=== PATIENT | female | born 1935 | race Caucasian/White ===

== ENCOUNTER 2016-12-22 16:33 | Emergency (ER) | payer MEDICARE ==
[~2016-12-22 16:33] MED LIST: BENADRYL50 MG PO; CEFTIN500 M1 PO; DAYPRO600 M1 PO; LOMOTIL 0.025 M1 TA1 PO; NKHM; PREDNISONE10 MG PO; ROBAXIN750 MG PO
[2016-12-22 17:16] LABS: BILIRUBIN NEGATIVE (NEGATIVE); BLOOD 3+ (NEGATIVE); CLARITY CLOUDY (CLEAR); COLOR YELLOW (YELLOW); GLUCOSE NEGATIVE (NEGATIVE); KETONE NEGATIVE (NEGATIVE); LEUKO ESTERASE 3+ (NEGATIVE); NITRITE POSITIVE (NEGATIVE); PROTEIN 2+ (NEGATIVE); SPECIFIC GRAVITY 1.025 (1.005-1.030); UROBILINOGEN 0.2 E.U./dl (0.2-1.0)
[2016-12-22 17:25] LABS: BACTERIA 3+; URINE REFLEX COMMENT YES (NO); WBC TNTC wbc/hpf (0-5)
[2016-12-22] MEDS ORDERED: AMINOPHYLLIN200 MG PO (17:31)
== END 2016-12-22 17:33 | disposition home or self-care (01) ==
LOC: ED 16:33
PROVIDERS: Registered Nurse
DX: N30.00 Acute cystitis without hematuria (principal); F17.200 Nicotine dependence, unspecified, uncomplicated; Z88.6 Allergy status to analgesic agent; Z90.49 Acquired absence of other specified parts of digestive tract

== ENCOUNTER 2017-03-29 16:50 | Emergency (ER) | payer MEDICARE ==
[~2017-03-29] VITALS: Wt 49.9 kg
[~2017-03-29 16:50] MED LIST changes: +AMINOPHYLLIN200 MG PO
[2017-03-29] MEDS ORDERED: NAPROSYN500 MG PO (17:25)
== END 2017-03-29 17:23 | disposition home or self-care (01) ==
LOC: ED 16:50
DX: S80.12XA Contusion of left lower leg, initial encounter (principal); R03.0 Elevated blood-pressure reading, without diagnosis of hypertension; F17.200 Nicotine dependence, unspecified, uncomplicated; Z88.6 Allergy status to analgesic agent; Z90.49 Acquired absence of other specified parts of digestive tract; W22.03XA Walked into furniture, initial encounter; Y93.89 Activity, other specified; Y92.9 Unspecified place or not applicable; Y99.9 Unspecified external cause status

== ENCOUNTER 2017-05-11 12:03 | Emergency (ER) | payer MEDICARE ==
[~2017-05-11] VITALS: Ht 170.1 cm; Wt 52.2 kg
[~2017-05-11 12:03] MED LIST changes: +NAPROSYN500 MG PO
== END 2017-05-11 13:40 | disposition home or self-care (01) ==
LOC: ED 12:03
DX: L24.9 Irritant contact dermatitis, unspecified cause (principal); F17.200 Nicotine dependence, unspecified, uncomplicated; Z88.6 Allergy status to analgesic agent

== ENCOUNTER 2020-03-17 10:37 | Inpatient (IN) | payer MEDICARE, MEDICAID ==
[2020-03-17] VITALS (42 sets, daily range): BP systolic 68–116; BP diastolic 36–79
[~2020-03-17] VITALS: Ht 167.6 cm; Wt 62.8 kg
[~2020-03-17 10:37] MED LIST changes: +ASPIRIN CHEWABL81 M1 PO; +ATORVASTATIN CA80 M1 PO; +GABAPENTIN100 M2 PO; +Ipratropium Brom3 ML NEB; +LISINOPRIL10 M1 PO; +Oscal,Oyster S500 MG PO; +PULMICORT RESP0.5 MG NEB; +VITAMIN D32000 UNI1 PO
[2020-03-17 11:09] LABS: BASO # 0.1 10*3/uL (0.0-0.1); BASO % 0.9 % (0.0-1.0); EOS # 0.3 10*3/uL (0.0-0.4); EOS % 3.6 % (1.0-4.0); HEMATOCRIT 34.8 % (37.0-47.0); LYMPH # 1.5 10*3/uL (1.3-4.4); LYMPH % 17.6 % (27.0-41.0); MEAN CELL VOLUME 93.3 fl (81.0-99.0); MEAN CORPUSCULAR HGB 28.7 pg (27.0-31.0); MEAN CORPUSCULAR HGB CONC 30.7 g/dl (33.0-37.0); MEAN PLATELET VOLUME 10.4 fl (9.6-12.3); MONO % 11.9 % (3.0-9.0); NEUT # 5.6 10*3/uL (2.3-7.9); NEUT % 64.7 % (47.0-73.0); PLATELET COUNT AUTOMATED 165 10*3/uL (130-400); RED BLOOD COUNT 3.73 10*6/uL (4.10-5.10); RED CELL DISTRI WIDTH 14.6 % (0-14.5); WHITE BLOOD COUNT 8.6 10*3/uL (4.8-10.8)
[2020-03-17 11:18] LABS: ACT PARTIAL THROMBO TIME 24.6 SECONDS (20.0-32.1); INTERNATIONAL NORM RATIO 1.1 (2.0-3.5)
[2020-03-17 11:23] LABS: ALBUMIN 2.5 gm/dl (3.1-4.5); ALKALINE PHOSPHATASE 86 U/L (45-117); BUN 144 mg/dl (7-24); CHLORIDE 118 mmol/L (98-107); CREATININE 2.75 mg/dL (0.55-1.02); LIPASE 509 U/L (73-393); POTASSIUM 5.9 mmol/L (3.5-5.1); SGOT/AST 23 IU/L (3-35); SGPT/ALT 17 U/L (12-78); SODIUM 140 mmol/L (136-145); TOTAL PROTEIN 6.9 gm/dL (6.4-8.2)
[2020-03-17 11:24] LABS: TROPONIN I < 0.015 ng/ml (<0.045)
--- NOTE | 2020-03-17 11:40 | NUR ---
HEM OCCULT POSITIVE, PERFORMED BY ELVIA PETERSON. RECTAL TEMP WAS 97.9
[2020-03-17 11:44] LABS: BILIRUBIN NEGATIVE (NEGATIVE); BLOOD 3+ (NEGATIVE); CLARITY CLOUDY (CLEAR); COLOR YELLOW (YELLOW); GLUCOSE NEGATIVE (NEGATIVE); KETONE NEGATIVE (NEGATIVE); UROBILINOGEN 0.2 E.U./dl (0.2-1.0)
[2020-03-17 11:45] LABS: LEUKO ESTERASE 3+ (NEGATIVE); NITRITE NEGATIVE (NEGATIVE)
[2020-03-17 11:49] LABS: WBC TNTC wbc/hpf (0-5)
--- NOTE | 2020-03-17 12:00 | NUR ---
A 84, admitted to ICCU, under the services of AYDE Odonnell MD with a diagnosis of REYMUNDO,GI BLEED, HYPERKALEMIA. Chief complaint is HYPOTENSION AND LETHARGY AT HALFWAY.. Patient arrived via stretcher from ER. Monitor applied. Initial assessment completed. Vital signs taken and recorded. AYDE ODONNELL MD notified of admission to the unit. Orders received. See assessment for past medical history, medications and allergies. Patient and/or family oriented to unit. [facility] visitation policy reviewed. CHARLEY HARRIS J
--- NOTE | 2020-03-17 12:28 | NUR ---
PATIENT IS LTC AT [facility]. WILL NEED A COVID TEST TO RETURN WHEN MEDICALLY [place].
[2020-03-17] MEDS ORDERED: NEURONTIN300 MG PO (12:48)
[2020-03-17] MEDS ORDERED: Oscal,Oyster S500 MG PO (12:49)
[2020-03-17] MEDS ORDERED: MIRTAZAPINE15 M2 PO (12:50)
[2020-03-17] MEDS ORDERED: THERA-D100 MCG PO (12:51)
[2020-03-17] MEDS ORDERED: ZOLOFT50 MG PO (12:52)
[2020-03-17] MEDS ORDERED: CRANBERRY250 MG PO (12:54)
[2020-03-17] MEDS ORDERED: MILK OF MA400 MG/51 PO (12:55)
[2020-03-17] MEDS ORDERED: BREO ELLIPTA 11 EACH INH (12:56)
--- NOTE | 2020-03-17 13:31 | NUR ---
DR WHITE NOTIFIED OF NEW CONSULT ORDER AND WILL SEE PT WITH HIS NEXT ROUNDS.
--- NOTE | 2020-03-17 14:46 | NUR ---
I NOTIFIED DR RYAN OF PT'S CONTINUED HYPOTENSION. ORDER TO START LEVOPHED GTT FOR HYPOTENSION.
--- NOTE | 2020-03-17 18:29 | NUR ---
DR RYAN NOTIFIED OF BMP RESULTS. NO ORDERS RECEIVED.
--- NOTE | 2020-03-17 19:02 | NUR ---
CHART CHECK COMPLETE.
--- NOTE | 2020-03-17 19:36 | NUR ---
PT WITHOUT COMPLAINTS. WATCHING TV. CALL LIGHT IN REACH.
--- NOTE | 2020-03-17 19:42 | NUR ---
IV SITE RT ARM (LEVOPHED SITE) REMAINS ASYMPTOMATIC.
--- NOTE | 2020-03-17 20:52 | NUR ---
LEVOPHED TITRATED DOWN TO 2MCG/MIN.
--- NOTE | 2020-03-17 20:54 | NUR ---
LEVOPHED TITRATED TO 3MCG/MIN.
--- NOTE | 2020-03-17 21:21 | NUR ---
LEVOPHED AT 2MCG/MIN. MAP REMAINS >65.
[2020-03-17 21:22] LABS: CREATININE 1.81 mg/dL (0.55-1.02)
[2020-03-17 21:27] LABS: POTASSIUM 4.8 mmol/L (3.5-5.1)
--- NOTE | 2020-03-17 21:38 | NUR ---
DR RYAN NOTIFIED OF BMP FROM 2099. NO NEW ORDERS RECEIVED.
--- NOTE | 2020-03-17 22:17 | NUR ---
JESS CARE DONE FOR INCONTINENCE OF LG AMT OF STRONG SMELLING URINE.
[2020-03-18] VITALS (54 sets, daily range): BP systolic 62–116; BP diastolic 37–79
--- NOTE | 2020-03-18 02:24 | NUR ---
IV SITE CHECKED AT LEAST Q1H AND REMAINS ASYMPTOMATIC. PT SLEEPING.
--- NOTE | 2020-03-18 03:47 | NUR ---
IV SITE REMAINS ASYMPTOMATIC. UPON TRYING TO CHECK PT FOR INCONTINENCE, SHE STATES "NO I'M NOT WET. NO YET." AND PULLS COVERS BACK OVER AND LAYS ON HER SIDE.
--- NOTE | 2020-03-18 04:29 | NUR ---
DR RYAN VISITS.
--- NOTE | 2020-03-18 05:28 | NUR ---
JESS CARE DONE WITH UNDERPADS AND GOWN CHANGED FOR INCONTINENCE OF LG AMT OF URINE.
--- NOTE | 2020-03-18 05:33 | NUR ---
LEVOPHED TITRATED OFF.
[2020-03-18 06:00] LABS: BASO # 0.1 10*3/uL (0.0-0.1); BASO % 1.1 % (0.0-1.0); EOS # 0.4 10*3/uL (0.0-0.4); EOS % 5.3 % (1.0-4.0); HEMATOCRIT 33.3 % (37.0-47.0); LYMPH # 1.4 10*3/uL (1.3-4.4); LYMPH % 18.5 % (27.0-41.0); MEAN CORPUSCULAR HGB 27.9 pg (27.0-31.0); MEAN CORPUSCULAR HGB CONC 30.6 g/dl (33.0-37.0); MEAN PLATELET VOLUME 10.5 fl (9.6-12.3); MONO # 0.9 10*3/uL (0.1-1.0); MONO % 12.6 % (3.0-9.0); NEUT # 4.5 10*3/uL (2.3-7.9); NEUT % 60.7 % (47.0-73.0); PLATELET COUNT AUTOMATED 178 10*3/uL (130-400); RED BLOOD COUNT 3.66 10*6/uL (4.10-5.10); RED CELL DISTRI WIDTH 14.6 % (0-14.5); WHITE BLOOD COUNT 7.4 10*3/uL (4.8-10.8)
--- NOTE | 2020-03-18 06:00 | NUR ---
PT RESTARTED ON LEVOPHED AT 3MCG/MIN.
[2020-03-18 06:27] LABS: ALBUMIN 2.4 gm/dl (3.1-4.5); POTASSIUM 4.8 mmol/L (3.5-5.1)
[2020-03-18 06:32] LABS: CREATININE 1.29 mg/dL (0.55-1.02); TOTAL PROTEIN 6.9 gm/dL (6.4-8.2)
--- NOTE | 2020-03-18 08:17 | NUR ---
Awakened for VS. No c/o . Incontinent of large amt urine, brief changed. Repositions self. Awaiting Dr. Parry for evaulation and recommendation. Remains NPO for possible EGD.
--- NOTE | 2020-03-18 10:22 | NUR ---
Dr. Parry in to evaulate. EGD not recommended at this time. Reg diet ordered.
--- NOTE | 2020-03-18 10:47 | NUR ---
IV left forearm infilltrated. IV removed. dressing to site. Levophed to off.
--- NOTE | 2020-03-18 19:38 | NUR ---
PT REFUSED MIRALAX.
--- NOTE | 2020-03-18 22:19 | NUR ---
JESS CARE DONE FOR INCONTINENCE OF URINE AND SMALL AMT OF HARD ROUND STOOLS. PT POSITIONED FOR COMFORT. CALL LIGHT IN REACH.
[2020-03-19] VITALS: BP 95/53
--- NOTE | 2020-03-19 02:45 | NUR ---
SLEEPING. NO DISTRESS.
[2020-03-19 04:00] VITALS: BP 92/59
--- NOTE | 2020-03-19 04:16 | NUR ---
JESS CARE DONE FOR INCONTINENCE OF LG AMT OF STRONG SMELLING URINE. PT JOKING. ASSESSMENT COMPLETE.
--- NOTE | 2020-03-19 06:49 | NUR ---
DR RYAN VISITS.
[2020-03-19 07:31] LABS: BASO # 0.1 10*3/uL (0.0-0.1); BASO % 0.8 % (0.0-1.0); EOS # 0.4 10*3/uL (0.0-0.4); EOS % 5.2 % (1.0-4.0); HEMATOCRIT 30.4 % (37.0-47.0); LYMPH # 1.5 10*3/uL (1.3-4.4); LYMPH % 19.3 % (27.0-41.0); MEAN CELL VOLUME 90.2 fl (81.0-99.0); MEAN CORPUSCULAR HGB 29.1 pg (27.0-31.0); MEAN CORPUSCULAR HGB CONC 32.2 g/dl (33.0-37.0); MEAN PLATELET VOLUME 10.1 fl (9.6-12.3); MONO # 0.8 10*3/uL (0.1-1.0); MONO % 10.7 % (3.0-9.0); NEUT # 4.8 10*3/uL (2.3-7.9); NEUT % 61.7 % (47.0-73.0); PLATELET COUNT AUTOMATED 172 10*3/uL (130-400); RED BLOOD COUNT 3.37 10*6/uL (4.10-5.10); RED CELL DISTRI WIDTH 14.5 % (0-14.5); WHITE BLOOD COUNT 7.8 10*3/uL (4.8-10.8)
[2020-03-19 07:54] LABS: CHLORIDE 116 mmol/L (98-107); CREATININE 0.88 mg/dL (0.55-1.02); POTASSIUM 4.1 mmol/L (3.5-5.1); SODIUM 142 mmol/L (136-145)
[2020-03-19 08:00] VITALS: BP 106/68
[2020-03-19 08:00] LABS: BUN 26 mg/dl (7-24)
[2020-03-19 12:00] VITALS: BP 115/72
--- NOTE | 2020-03-19 14:16 | NUR ---
PT TRANSFERED TO [facility] VIA BED. PT REPORT GIVEN TO RECEIVING NURSE.
[2020-03-19 16:00] VITALS: BP 125/72
[2020-03-19 20:00] VITALS: BP 133/84
--- NOTE | 2020-03-19 20:49 | NUR ---
ASSUMED CARE OF PATIENT. PATIENT IS AAOX3 RESTING IN BED WITH EASY AND REGULAR RESPERS ON ROOM AIR. ASSESSMENT IS COMPLETE. PATIENT C/O NAUSEA. BED IS LOW, LOCKED, AND CALL LIGHT IS WITHIN REACH. CALL PLACED TO DR. RYAN REQUESTED VENKATA. VENKATA ORDERED AND SHE WOULD ALSO LIKE IV FLUIDS DISCONTINUED.
[2020-03-20] VITALS: BP 117/63
[2020-03-20 06:20] LABS: BASO # 0.1 10*3/uL (0.0-0.1); BASO % 1.2 % (0.0-1.0); EOS # 0.4 10*3/uL (0.0-0.4); EOS % 4.3 % (1.0-4.0); HEMATOCRIT 32.2 % (37.0-47.0); LYMPH # 1.5 10*3/uL (1.3-4.4); LYMPH % 18.7 % (27.0-41.0); MEAN CELL VOLUME 91.2 fl (81.0-99.0); MEAN CORPUSCULAR HGB 28.9 pg (27.0-31.0); MEAN CORPUSCULAR HGB CONC 31.7 g/dl (33.0-37.0); MEAN PLATELET VOLUME 10.2 fl (9.6-12.3); MONO # 0.8 10*3/uL (0.1-1.0); MONO % 10.2 % (3.0-9.0); NEUT # 5.1 10*3/uL (2.3-7.9); NEUT % 63.1 % (47.0-73.0); PLATELET COUNT AUTOMATED 180 10*3/uL (130-400); RED BLOOD COUNT 3.53 10*6/uL (4.10-5.10); RED CELL DISTRI WIDTH 14.2 % (0-14.5); WHITE BLOOD COUNT 8.1 10*3/uL (4.8-10.8)
[2020-03-20 06:30] LABS: CHLORIDE 116 mmol/L (98-107); CREATININE 0.78 mg/dL (0.55-1.02); POTASSIUM 3.8 mmol/L (3.5-5.1); SODIUM 143 mmol/L (136-145)
[2020-03-20 06:33] LABS: BUN 12 mg/dl (7-24)
[2020-03-20 08:00] VITALS: BP 120/62
--- NOTE | 2020-03-20 08:24 | NUR ---
PT RESTING IN BED. NO DISTRESS NOTED. WILL MONITOR
[2020-03-20] MEDS ORDERED: PROTONIX40 MG PO (08:30)
[2020-03-20] MEDS ORDERED: Carafate1 GM PO (08:30)
[2020-03-20] MEDS ORDERED: FERROUS SULFAT325 MG PO (08:30)
--- NOTE | 2020-03-20 09:08 | NUR ---
Patient comes in from [facility]; Covid-19 test ordered 03/20/2020, waiting on results prior to patient returning.
[2020-03-20 12:00] VITALS: BP 130/73
[2020-03-20 16:00] VITALS: BP 114/74
[2020-03-20 20:00] VITALS: BP 143/79
--- NOTE | 2020-03-20 20:00 | NUR ---
24 HR chart check completed.
--- NOTE | 2020-03-20 21:00 | NUR ---
SLEEPING, AWAKENS EASILY. RESPIRATIONS EASY. LUNGS DIMINISHED WITH COARSE EXP WHEEZES. PULSE OX 95% RA. CALL LIGHT WITHIN REACH. NO VOICED COMPLAINTS. BED ALARM MAINTAINED FOR SAFETY
[2020-03-21] VITALS: BP 129/79
--- NOTE | 2020-03-21 | NUR ---
SLEEPING. NO DISTRESS NOTED. RESPIRATIONS EASY. VSS. CALL LIGHT WITHIN REACH. BED ALARM MAINTAINED FOR SAFETY
--- NOTE | 2020-03-21 06:00 | NUR ---
slept throughout night with no distress noted. respirations easy. call light within reach. no voiced complaints this shift. bed alarm maintained for safety
--- NOTE | 2020-03-21 07:37 | NUR ---
Updates and discharge information faxed to Josefina at [facility], notified of discharge. Waiting for [facility] to state patient is ok to return today with Covid 19 test still pending.
[2020-03-21 08:00] VITALS: BP 132/72
--- NOTE | 2020-03-21 08:00 | NUR ---
Patient resting quietly with no c/o discomfort. Respirations easy and regular. Vital signs stable. No overt distress. DARELL DACOSTA
--- NOTE | 2020-03-21 10:43 | NUR ---
Patient is discharged to return to [facility], while Covid test results are pending. They stated since patient is not representing any covid symptoms they will allow her to return today. cashier or checker stock clerk, nursing notified of picker and packer time.
--- NOTE | 2020-03-21 11:04 | NUR ---
Discharge instructions reviewed with patient/family. Patient receptive and verbalizes understanding. Follow-up care arranged. Written instructions given to patient/family. DARELL DACOSTA.
--- NOTE | 2020-03-21 11:15 | NUR ---
[facility] CALLED. NURSE TO NURSE REPORT GIVEN AT THIS TIME.
--- NOTE | 2020-03-21 11:36 | NUR ---
PT WILL RETURN TO [facility] WHEN MEDICALLY STABLE. PT IS SENIOR CARE CARE.
--- NOTE | 2020-03-21 13:20 | NUR ---
PATIENT DISCHARGED AT THIS TIME. TRANSPORTATION PROVIDED BY [facility].
== END 2020-03-21 13:20 | disposition other institution (70) | DRG 314 ==
LOC: ED 10:37 → 4E 11:47 → EDHOLD 11:47 → ICCU 11:59 → 4E 03-19 14:01
PROVIDERS: Nurse Practitioner Family; ADMIT Internal Medicine
DX: I95.9 Hypotension, unspecified (principal); N17.0 Acute kidney failure with tubular necrosis; K92.2 Gastrointestinal hemorrhage, unspecified; E87.2 Acidosis; E46 Unspecified protein-calorie malnutrition; I10 Essential (primary) hypertension; F17.210 Nicotine dependence, cigarettes, uncomplicated; E86.0 Dehydration; L89.151 Pressure ulcer of sacral region, stage 1; E87.5 Hyperkalemia; J43.9 Emphysema, unspecified; E78.5 Hyperlipidemia, unspecified; D50.9 Iron deficiency anemia, unspecified; Z86.73 Personal history of transient ischemic attack (TIA), and cerebral infarction without residual deficits; Z88.6 Allergy status to analgesic agent; Z88.5 Allergy status to narcotic agent; Z91.041 Radiographic dye allergy status; Z90.49 Acquired absence of other specified parts of digestive tract; Z90.710 Acquired absence of both cervix and uterus; Z90.79 Acquired absence of other genital organ(s); Z90.722 Acquired absence of ovaries, bilateral; Z82.3 Family history of stroke; Z91.81 History of falling; Z68.22 Body mass index [BMI] 22.0-22.9, adult; Z03.818 Encounter for observation for suspected exposure to other biological agents ruled out

== ENCOUNTER 2023-03-14 12:54 | Inpatient (IN) | payer OTHER ==
[~2023-03-14] VITALS: Ht 170.2 cm; Wt 53.2 kg
[~2023-03-14 12:54] MED LIST changes: +BREO ELLIPTA 11 EACH INH; +CRANBERRY250 MG PO; +Carafate1 GM PO; +FERROUS SULFAT325 MG PO; +MILK OF MA400 MG/51 PO; +MIRTAZAPINE15 M2 PO; +NEURONTIN300 MG PO; +PROTONIX40 MG PO; +THERA-D100 MCG PO; +ZOLOFT50 MG PO
[2023-03-14 13:01] VITALS: BP 79/47
[2023-03-14 13:22] LABS: HEMATOCRIT 38.7 % (37.0-47.0); MEAN CELL VOLUME 100.8 fl (81.0-99.0); MEAN CORPUSCULAR HGB CONC 30.7 g/dl (33.0-37.0); MEAN PLATELET VOLUME 10.3 fl (9.6-12.3); PLATELET COUNT AUTOMATED 208 10*3/uL (130-400); RED BLOOD COUNT 3.84 10*6/uL (4.10-5.10); RED CELL DISTRI WIDTH 14.9 % (0-14.5); WHITE BLOOD COUNT 16.9 10*3/uL (4.8-10.8)
[2023-03-14 13:24] LABS: MANUAL DIFF REFLEX YES
[2023-03-14 13:33] LABS: ACT PARTIAL THROMBO TIME 24.4 SECONDS (20.0-32.1); INTERNATIONAL NORM RATIO 1.1 (2.0-3.5)
[2023-03-14 13:44] LABS: PLATELET SUFFICIENCY NORMAL (NORMAL); TOTAL CELLS COUNTED 100 #CELLS
[2023-03-14 13:45] LABS: TOTAL PROTEIN 7.3 gm/dL (6.0-8.0)
[2023-03-14] MEDS ORDERED: ARTIFICIAL TEAR1514 OP (14:45)
[2023-03-14] MEDS ORDERED: DICLOFENAC SODI25 MG PO (14:49)
[2023-03-14] MEDS ORDERED: NEURONTIN300 MG PO (14:50)
[2023-03-14] MEDS ORDERED: ONDANSETRON HYDR4 MG PO (14:57)
[2023-03-14] MEDS ORDERED: TYLENOL EXTRA500 MG PO (15:00)
[2023-03-14 15:48] VITALS: BP 85/52
[2023-03-14 16:25] VITALS: BP 93/58
[2023-03-14 17:13] LABS: BILIRUBIN Negative (Negative); BLOOD 2+ (Negative); CLARITY Turbid (Clear); COLOR Yellow (Yellow); GLUCOSE Negative (Negative); KETONE Trace (Negative); LEUKO ESTERASE 3+ (Negative); NITRITE Positive (Negative)
[2023-03-14 17:23] LABS: BACTERIA 4+; WBC 31-40 wbc/hpf (0-5)
[2023-03-14] MEDS ORDERED: LIPITOR20 MG PO (17:36)
[2023-03-14] MEDS ORDERED: VITAMIN D325 MCG PO (17:38)
[2023-03-14 20:00] VITALS: BP 91/48
[2023-03-15] VITALS: BP 108/65
[2023-03-15 04:00] VITALS: BP 128/66
[2023-03-15 06:08] LABS: MEAN CELL VOLUME 100.6 fl (81.0-99.0); MEAN CORPUSCULAR HGB 30.8 pg (27.0-31.0); MEAN CORPUSCULAR HGB CONC 30.6 g/dl (33.0-37.0); MEAN PLATELET VOLUME 11.1 fl (9.6-12.3); PLATELET COUNT AUTOMATED 196 10*3/uL (130-400); RED BLOOD COUNT 3.28 10*6/uL (4.10-5.10)
[2023-03-15 06:13] LABS: MANUAL DIFF REFLEX YES
[2023-03-15 07:10] LABS: TOTAL CELLS COUNTED 100 #CELLS
[2023-03-15 07:13] LABS: PLATELET SUFFICIENCY NORMAL (NORMAL)
[2023-03-15 08:00] VITALS: BP 113/59
[2023-03-15 08:56] LABS: BUN 19 mg/dl (9-23); CHLORIDE 109 mmol/L (98-107); POTASSIUM 4.4 mmol/L (3.4-5.1)
[2023-03-15 12:00] VITALS: BP 114/65
[2023-03-15 16:00] VITALS: BP 111/60
[2023-03-15 17:04] LABS: ABG BASE EXCESS -1.3 mmol/L (-2.0-2.0); ARTERIAL BLOOD GAS PH 7.421 (7.35-7.45); ARTERIAL BLOOD GAS PO2 68.3 (80-90)
[2023-03-15 20:00] VITALS: BP 109/64
[2023-03-16] VITALS (7 sets, daily range): BP systolic 86–155; BP diastolic 41–95
[2023-03-16 04:33] LABS: HEMATOCRIT 32.5 % (37.0-47.0); MEAN CELL VOLUME 97.9 fl (81.0-99.0); MEAN CORPUSCULAR HGB 30.7 pg (27.0-31.0); MEAN CORPUSCULAR HGB CONC 31.4 g/dl (33.0-37.0); MEAN PLATELET VOLUME 10.6 fl (9.6-12.3); PLATELET COUNT AUTOMATED 207 10*3/uL (130-400); RED BLOOD COUNT 3.32 10*6/uL (4.10-5.10); WHITE BLOOD COUNT 19.2 10*3/uL (4.8-10.8)
[2023-03-16 04:37] LABS: MANUAL DIFF REFLEX YES
[2023-03-16 04:53] LABS: BUN 15 mg/dl (9-23); CHLORIDE 106 mmol/L (98-107)
[2023-03-16 04:59] LABS: POLYCHROMASIA SLIGHT; ROULEAUX SLIGHT; TOTAL CELLS COUNTED 100 #CELLS
[2023-03-16 05:00] LABS: BURR CELLS FEW; OVALOCYTES FEW; PLATELET SUFFICIENCY NORMAL (NORMAL)
[2023-03-16 05:02] LABS: TOXIC GRANULATION SLIGHT
[2023-03-16 05:22] LABS: POTASSIUM 3.4 mmol/L (3.4-5.1)
[2023-03-17] VITALS: BP 106/62
[2023-03-17 04:00] VITALS: BP 105/57
[2023-03-17 04:24] LABS: BASO # 0.1 10*3/uL (0.0-0.1); BASO % 0.7 % (0.0-1.0); EOS # 0.2 10*3/uL (0.0-0.4); EOS % 1.7 % (1.0-4.0); HEMATOCRIT 34.3 % (37.0-47.0); LYMPH # 1.8 10*3/uL (1.3-4.4); MEAN CELL VOLUME 99.7 fl (81.0-99.0); MEAN CORPUSCULAR HGB 30.5 pg (27.0-31.0); MEAN CORPUSCULAR HGB CONC 30.6 g/dl (33.0-37.0); MEAN PLATELET VOLUME 10.4 fl (9.6-12.3); MONO # 1.4 10*3/uL (0.1-1.0); MONO % 11.6 % (3.0-9.0); NEUT # 8.6 10*3/uL (2.3-7.9); NEUT % 70.3 % (47.0-73.0); PLATELET COUNT AUTOMATED 183 10*3/uL (130-400); RED BLOOD COUNT 3.44 10*6/uL (4.10-5.10); RED CELL DISTRI WIDTH 15.2 % (0-14.5); WHITE BLOOD COUNT 12.3 10*3/uL (4.8-10.8)
[2023-03-17 04:52] LABS: POTASSIUM 3.3 mmol/L (3.4-5.1)
[2023-03-17 08:00] VITALS: BP 101/56
[2023-03-17 12:00] VITALS: BP 101/59
[2023-03-17 16:00] VITALS: BP 103/51
[2023-03-17 20:07] VITALS: BP 110/69
[2023-03-18] VITALS: BP 126/75
[2023-03-18 04:00] VITALS: BP 133/67
[2023-03-18 08:00] VITALS: BP 110/65
[2023-03-18 12:00] VITALS: BP 109/67
[2023-03-18 16:00] VITALS: BP 93/55
[2023-03-18 20:00] VITALS: BP 124/77
[2023-03-19] VITALS: BP 120/70
[2023-03-19 04:23] VITALS: BP 96/51
[2023-03-19 05:27] LABS: BUN 19 mg/dl (9-23); CHLORIDE 102 mmol/L (98-107); POTASSIUM 3.8 mmol/L (3.4-5.1)
[2023-03-19 06:29] LABS: BASO % 0.3 % (0.0-1.0); HEMATOCRIT 35.9 % (37.0-47.0); LYMPH # 0.8 10*3/uL (1.3-4.4); MEAN CORPUSCULAR HGB 30.2 pg (27.0-31.0); MEAN CORPUSCULAR HGB CONC 31.5 g/dl (33.0-37.0); MEAN PLATELET VOLUME 10.6 fl (9.6-12.3); MONO # 0.4 10*3/uL (0.1-1.0); MONO % 3.8 % (3.0-9.0); NEUT # 8.8 10*3/uL (2.3-7.9); NEUT % 85.9 % (47.0-73.0); PLATELET COUNT AUTOMATED 218 10*3/uL (130-400); RED BLOOD COUNT 3.74 10*6/uL (4.10-5.10); RED CELL DISTRI WIDTH 14.1 % (0-14.5); WHITE BLOOD COUNT 10.3 10*3/uL (4.8-10.8)
[2023-03-19 08:00] VITALS: BP 106/60
[2023-03-19 12:00] VITALS: BP 101/57
[2023-03-19 16:00] VITALS: BP 109/61
[2023-03-19 20:00] VITALS: BP 99/70
[2023-03-20] VITALS: BP 123/78
[2023-03-20 08:00] VITALS: BP 114/80; BP 114/82
[2023-03-20] MEDS ORDERED: ASPIRIN ADULT L81 M2 PO (10:14)
[2023-03-20] MEDS ORDERED: LEVOFLOXACIN500 MG PO (10:14)
[2023-03-20] MEDS ORDERED: MEDROL DOSEPAK4 MG PO (10:24)
[2023-03-20 12:00] VITALS: BP 117/65
[2023-03-20 16:00] VITALS: BP 124/73
== END 2023-03-20 17:55 | DRG 871 ==
LOC: ED 12:54 → ICCU 15:08 → EDHOLD 15:08 → ICCU 15:45
PROVIDERS: Emergency Medicine; Internal Medicine Critical Care Medicine; ADMIT Internal Medicine; ATTEND Internal Medicine
PROC: 5A0935A Assistance with Respiratory Ventilation, Less than 24 Consecutive Hours, High Flow/Velocity Cannula (ICD-10-PCS; principal; 2023-03-16)
PROC: 5A0935A Assistance with Respiratory Ventilation, Less than 24 Consecutive Hours, High Flow/Velocity Cannula (ICD-10-PCS; 2023-03-17)
DX: A41.50 Gram-negative sepsis, unspecified (principal); I50.31 Acute diastolic (congestive) heart failure; J18.9 Pneumonia, unspecified organism; J96.21 Acute and chronic respiratory failure with hypoxia; K21.01 Gastro-esophageal reflux disease with esophagitis, with bleeding; F33.0 Major depressive disorder, recurrent, mild; I69.351 Hemiplegia and hemiparesis following cerebral infarction affecting right dominant side; N39.0 Urinary tract infection, site not specified; E46 Unspecified protein-calorie malnutrition; Z68.1 Body mass index [BMI] 19.9 or less, adult; R62.7 Adult failure to thrive; J43.2 Centrilobular emphysema; I95.9 Hypotension, unspecified; R65.20 Severe sepsis without septic shock; D64.9 Anemia, unspecified; E87.6 Hypokalemia; Z88.8 Allergy status to other drugs, medicaments and biological substances; Z88.6 Allergy status to analgesic agent; Z91.041 Radiographic dye allergy status; Z90.49 Acquired absence of other specified parts of digestive tract; Z90.721 Acquired absence of ovaries, unilateral; Z90.710 Acquired absence of both cervix and uterus; Z82.3 Family history of stroke